=== PATIENT | female | born 2005 | race Caucasian/White ===

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

== ENCOUNTER → 2023-09-30 | Outpatient (CLI) | payer OTHER ==
[2023-09-30 13:28] LABS: Basophils % (A) 1 %; Eosinophils # (A) 0.1 k/uL (0-0.7); Eosinophils % (A) 1 %; Lymphocytes # (A) 1.3 k/uL (1.0-4.8); Lymphocytes % (A) 34 %; MCHC 33.4 g/dL (31.0-37.0); Mean Platelet Volume 6.6; Monocytes # (A) 0.3 k/uL (0-1.0); Monocytes % (A) 9 %; Neutrophils # (A) 2.1 k/uL (1.3-7.7); Neutrophils % (A) 53 %; Platelet Count 331 k/uL (150-450); RDW 12.4 % (11.5-15.5); WBC 3.9 k/uL (4.0-11.0)
[2023-09-30 13:45] LABS: ALT 18 U/L (4-34); AST 27 U/L (14-36); African American GFR (CKD) >90 (>60 ml/min/1.73 sqM); Albumin 5.2 g/dL (3.5-5.0); Albumin/Globulin Ratio 1.6; Alkaline Phosphatase 80 U/L (38-126); Anion Gap 9 mmol/L; Blood Urea Nitrogen 8 mg/dL (7-17); Carbon Dioxide 26 mmol/L (22-30); Chloride 106 mmol/L (98-107); Globulin 3.3 g/dL; Glucose 93 mg/dL (74-99); Non-African American GFR(CKD) >90 (>60 ml/min/1.73 sqM); Potassium 4.4 mmol/L (3.5-5.1); Sodium 141 mmol/L (137-145); Total Bilirubin 0.8 mg/dL (0.2-1.3); Total Protein 8.5 g/dL (6.3-8.2)
[2023-09-30 13:59] LABS: T4, Free (Free Thyroxine) 1.13 ng/dL (0.78-2.19)
[2023-09-30 18:39] LABS: Erythrocyte Sedimentation Rate 4 mm/Hr (0-20)
[2023-09-30 19:11] LABS: C Reactive Protein, High Sens <0.150 mg/L (0.000-3.000)
[2023-09-30 21:47] LABS: EBV-EA (IgG) <0.2 AI; EBV-EBNA(IgG) <0.2; EBV-VCA (IgG) <0.2 AI
[2023-10-03 05:39] LABS: Mycoplasma IgM Antibody 1.24 INDEX (<=0.90)
[2023-10-03 09:39] LABS: EBV-VCA (IgM) sent to ARUP AI
[2023-10-03 14:38] LABS: Thyroid Stim Immun Quant <0.10 IU/L (<0.10)
== END | disposition home or self-care (01) ==
LOC: LABWHC1 12:33
PROVIDERS: ATTEND Pediatrics Adolescent Medicine
DX: Z01.818 Encounter for other preprocedural examination (principal); R00.2 Palpitations; R51.9 Headache, unspecified; R55 Syncope and collapse
CPT/HCPCS: 36415; 80053; 84439; 84443; 84445; 85025; 85652; 86141; 86376; 86663; 86664; 86665; 86738; 93005